=== PATIENT | female | born 1975 | race American Indian/Alaskan Native ===

== ENCOUNTER 2017-03-24 21:03 | Emergency (ER) | payer OTHER ==
[2017-03-25 01:40] LABS: Hemoglobin 10.2 gm/dl (10.1-14.3); Mean Corpuscular HGB Conc 32 % (30-34); Mean Corpuscular Volume 77 fl (79-97); Platelet Count 217 K/mm3 (140-440); Red Blood Count 4.17 M/mm3 (3.65-5.03)
[2017-03-25 01:45] LABS: Mean Corpuscular Hemoglobin 25 pg (28-32); Red Cell Distribution Width 20.3 % (13.2-15.2)
[2017-03-25 01:52] LABS: BUN/Creatinine Ratio 7; Blood Urea Nitrogen 5 mg/dL (7-17); Calcium 8.2 mg/dL (8.4-10.2); Hemolysis Index 3
[2017-03-25 02:29] LABS: Eosinophils % (Manual) 0 % (0.0-4.3); Total Cells Counted 100
[2017-03-25 02:30] LABS: Anisocytosis 1+; Hypochromasia 1+; Ovalocytes 1+
[2017-03-25 04:22] VITALS: BP 126/67
--- NOTE | 2017-03-25 05:24 | XRay Report ---
FINAL REPORT PROCEDURE: XR CHEST ROUTINE 2V TECHNIQUE: A portable AP chest radiograph was obtained at 03/25/2017 04:52 (EST) . CPT 23914 HISTORY: cough, fever COMPARISON: No prior studies are available for comparison. FINDINGS: Heart: Normal. Mediastinum/Vessels: Normal. Lungs/Pleural space: Lungs are clear and expanded. There are no infiltrates, effusions or pneumothoraces.. Bony thorax: No acute osseous abnormality. Life support devices: None. IMPRESSION: No acute cardiopulmonary abnormality.
[2017-03-25 05:50] LABS: Bacteria,Urine 1+ /HPF (Negative); Bilirubin,Urine NEG (Negative); Blood,Urine NEG (Negative); Color,Urine Yellow (Yellow); Nitrite,Urine NEG (Negative); Protein,Urine <15 mg/dL mg/dL (Negative); Urobilinogen,Urine < 2.0 mg/dL (<2.0)
[2017-03-25 05:51] LABS: HCG Qualitative,Urine Negative (Negative)
--- NOTE | 2017-03-25 07:02 | Emergency Department Report ---
- General Chief Complaint: Upper Respiratory Infection Stated Complaint: FLU LIKE SX Time Seen by Provider: 03/25/17 04:25 Source: patient Mode of arrival: Ambulatory Limitations: No Limitations - History of Present Illness Initial Comments: 41-year-old female past medical history anemia, chronic leukopenia presents with complaint of 1.5 weeks of persistent cough with some associated body aches and intermittent fevers. Patient is awake alert and oriented 3 fully lucid speaking in full sentences nontoxic appearing. No trismus no drooling, no dyspnea. Patient states she has had sick contacts with flulike symptoms this week. Patient denies chest pain or dyspnea at rest. States she occasionally smokes. States she has been having some body aches. Denies dysuria or increased urinary frequency. Primarily complaining of persistent nonproductive cough. MD Complaint: fever, cough, sore throat, rhinorrhea, nasal congestion Onset/Timin -: days(s), week(s) Severity: moderate Consistency: constant Improves With: OTC cold medicine Worsens With: nothing Context: sick contacts Associated Symptoms: fever, chills, myalgias, cough Treatments Prior to Arrival: "cold medicine" - Related Data Previous Rx's Medication Instructions Recorded Last Taken Type Albuterol Sulfate [Ventolin Hfa] 1 puff IH Q4H PRN #1 hfa.aer.ad 03/25/17 Unknown Rx Azithromycin [Zithromax Z-ALEJANDRO] 250 mg PO QDAY #1 pack 03/25/17 Unknown Rx Benzonatate [Tessalon Perles] 100 mg PO Q8HR PRN #30 capsule 03/25/17 Unknown Rx Ibuprofen [Motrin] 800 mg PO Q8HR PRN #30 tablet 03/25/17 Unknown Rx Phenylephrine/Dm/Acetaminop/GG 10 ml PO Q6H PRN #1 liquid 03/25/17 Unknown Rx [Mucinex Myox-Pdr-Nusouwnqyv Lq] Allergies Allergy/AdvReac Type Severity Reaction Status Date / Time cyclobenzaprine Allergy Hives Verified 03/25/17 01:07 [From Flexeril] ED Review of Systems ROS: Stated complaint: FLU LIKE SX Other details as noted in HPI Constitutional: fever, malaise. denies: chills Eyes: denies: eye pain, eye discharge, vision change ENT: denies: ear pain, throat pain Respiratory: cough. denies: shortness of breath, wheezing Cardiovascular: denies: chest pain, palpitations Endocrine: no symptoms reported Gastrointestinal: denies: abdominal pain, nausea, diarrhea Genitourinary: denies: urgency, dysuria, discharge Musculoskeletal: denies: back pain, joint swelling, arthralgia Skin: denies: rash, lesions Neurological: denies: headache, weakness, paresthesias Psychiatric: denies: anxiety, depression Hematological/Lymphatic: denies: easy bleeding, easy bruising ED Past Medical Hx - Past Medical History Previous Medical History?: Yes - Surgical History Additional Surgical History: , tubaligation 2001, anemia - Social History Smoking Status: Never Smoker - Medications Home Medications: Home Medications Medication Instructions Recorded Confirmed Last Taken Type Albuterol Sulfate [Ventolin Hfa] 1 puff IH Q4H PRN #1 hfa.aer.ad 03/25/17 Unknown Rx Azithromycin [Zithromax Z-ALEJANDRO] 250 mg PO QDAY #1 pack 03/25/17 Unknown Rx Benzonatate [Tessalon Perles] 100 mg PO Q8HR PRN #30 capsule 03/25/17 Unknown Rx Ibuprofen [Motrin] 800 mg PO Q8HR PRN #30 tablet 03/25/17 Unknown Rx Phenylephrine/Dm/Acetaminop/GG 10 ml PO Q6H PRN #1 liquid 03/25/17 Unknown Rx [Mucinex Lfnc-Ojq-Ejrrdpzbev Lq] ED Physical Exam - General Limitations: No Limitations General appearance: alert, in no apparent distress - Head Head exam: Present: atraumatic, normocephalic - Eye Eye exam: Present: normal appearance, PERRL, EOMI - ENT ENT exam: Present: mucous membranes moist - Neck Neck exam: Present: normal inspection - Respiratory Respiratory exam: Present: normal lung sounds bilaterally. Absent: respiratory distress - Cardiovascular Cardiovascular Exam: Present: regular rate, normal rhythm. Absent: systolic murmur, diastolic murmur, rubs, gallop - GI/Abdominal GI/Abdominal exam: Present: soft, normal bowel sounds - Extremities Exam Extremities exam: Present: normal inspection - Back Exam Back exam: Present: normal inspection - Neurological Exam Neurological exam: Present: alert, oriented X3 - Psychiatric Psychiatric exam: Present: normal affect, normal mood - Skin Skin exam: Present: warm, dry, intact, normal color. Absent: rash ED Course Vital Signs 03/25/17 03/25/17 00:55 04:11 Temperature 99.9 F H 99.3 F Pulse Rate 88 79 Respiratory 18 18 Rate Blood Pressure 126/67 Blood Pressure 119/77 [Left] O2 Sat by Pulse 98 95 Oximetry ED Medical Decision Making - Lab Data Result diagrams: 03/25/17 01:20 03/25/17 01:20 - Medical Decision Making A/P: Flulike illness, viral syndrome, chronic leukopenia 1-strep and flu swabs negative, urinalysis unremarkable. 2-chest x-ray is unremarkable, vital signs stable before discharge. Patient tolerating by mouth fluid and food without difficulty. 3-Motrin when necessary, Mucinex when necessary, Tessalon Perles when necessary , albuterol inhaler when necessary. Z-Alejandro as patient is occasional smoker and also in context of leukopenia. Patient is out of window for efficacy of Tamiflu 4- I advised patient to follow up with primary care or to return to the ED for any inability to tolerate by mouth fluid or food persistent nausea and vomiting severe fevers and chills or fevers persistently above 100.4F despite antipyretic use, severe lethargy. Patient stated he understood my instructions. I advised patient to remain well-hydrated. Critical care attestation.: If time is entered above; I have spent that time in minutes in the direct care of this critically ill patient, excluding procedure time. ED Disposition Clinical Impression: Chronic leukopenia, Viral syndrome, Flu-like symptoms Disposition: - TO HOME OR SELFCARE Is pt being admited?: No Does the pt Need Aspirin: No Condition: Stable Instructions: Viral Syndrome (ED), Influenza (ED), Cold Symptoms (ED) Prescriptions: Albuterol Sulfate [Ventolin Hfa] 1 puff IH Q4H PRN #1 hfa.aer.ad PRN Reason: Wheezing Azithromycin [Zithromax Z-ALEJANDRO] 250 mg PO QDAY #1 pack Benzonatate [Tessalon Perles] 100 mg PO Q8HR PRN #30 capsule PRN Reason: Cough Ibuprofen [Motrin] 800 mg PO Q8HR PRN #30 tablet PRN Reason: Fever Phenylephrine/Dm/Acetaminop/GG [Mucinex Sqyd-Bde-Bfqrxsvjdf Lq] 10 ml PO Q6H PRN #1 liquid PRN Reason: Cough Referrals: ZENA PLASCENCIA MD [Primary Care Provider] - 3-5 Days МАРИНА MARTINEZ MD [Staff Physician] - 3-5 Days CARLYLE DAMON MD [Staff Physician] - 3-5 Days [facility] [Outside] - 3-5 Days Forms: Accompanied Note, Work/School Release Form(ED) Time of Disposition: 07:04
== END 2017-03-25 07:29 | disposition home or self-care (01) ==
LOC: ED 21:03
DX: D72.819 Decreased white blood cell count, unspecified (principal); B34.9 Viral infection, unspecified; J11.1 Influenza due to unidentified influenza virus with other respiratory manifestations
CPT/HCPCS: 36415; 71046; 80048; 81001; 81025; 85007; 85025; 87116; 87400; 87430

== ENCOUNTER 2020-01-08 13:22 | Emergency (ER) | payer OTHER ==
[2020-01-08 14:04] VITALS: BP 119/77
--- NOTE | 2020-01-08 16:52 | XRay Report ---
CLINICAL DATA: fall TECHNICAL DATA: Two views were obtained, AP and lateral. FINDINGS: The soft tissues are normal. Bone mineralization is normal. There is no acute fracture or dislocation . Degenerative changes present first carpal metacarpal articulation. IMPRESSION: No acute radiographic abnormality. Signer Name: Meño Key MD Signed: 01/08/2020 4:47 PM Workstation Name: [id number]
--- NOTE | 2020-01-08 17:01 | Emergency Department Report ---
ED Fall HPI - General Chief Complaint: Fall Stated Complaint: RT FOOT/RT HIP INJURY Time Seen by Provider: 01/08/20 16:56 Source: patient Mode of arrival: Ambulatory - History of Present Illness Initial Comments: The patient was evaluated in the emergency department for symptoms described in the history of present illness. He/she was evaluated in the context of the global COVID-19 pandemic, which necessitated consideration that the patient might be at risk for infection with the virus that causes COVID-19. Institutional protocols and algorithms that pertain to the evaluation of patients at risk for COVID-19 are in a state of rapid change based on information released by regulatory bodies including the CDC and federal and state organizations. These policies and algorithms were followed during the patient's care in the emergency department. Please note that these policies, procedures and recommendations changed on a rapid basis. 44-year-old -[place] female presents to the emergency room complaining of pain in her right toe and right side of back status post fall at work yesterday. Patient reports that she did take a dose of naproxen last night but has not taken anything for her pain today. Patient denies any past medical history reports she is allergic to Flexeril. MD Complaint: fall -: Last night Place Fall Occurred: work Loss of Consciousness: none Prolonged Down Time?: no Symptoms Prior to Fall: none Location: back Location - Extremities: Right: Foot (First and second digit) Severity: severe Severity scale (0 -10): 8 Quality: burning, sharp, aching Context: tripped/slipped - Related Data Previous Rx's Medication Instructions Recorded Last Taken Type Albuterol Sulfate [Ventolin Hfa] 1 puff IH Q4H PRN #1 hfa.aer.ad 03/25/17 Unknown Rx Azithromycin [Zithromax Z-DANIEL] 250 mg PO QDAY #1 pack 03/25/17 Unknown Rx Benzonatate [Tessalon Perles] 100 mg PO Q8HR PRN #30 capsule 03/25/17 Unknown Rx Phenylephrine/Dm/Acetaminop/GG 10 ml PO Q6H PRN #1 liquid 03/25/17 Unknown Rx [Mucinex Cnbt-Cez-Uckznxjnde Lq] Ondansetron [Zofran Odt] 4 mg PO Q8HR PRN #14 tab.rapdis 05/06/18 Unknown Rx Prednisone [predniSONE 10 mg 10 mg PO .TAPER #1 tab.ds.pk 05/06/18 Unknown Rx (6-Day Pack, 21 Tabs)] traMADoL [Ultram 50 MG tab] 50 mg PO Q4HR PRN #14 tablet 05/06/18 Unknown Rx Sulfamethoxazole/Trimethoprim 1 each PO BID #14 tablet 05/02/19 Unknown Rx [Bactrim DS TAB] Diclofenac Sodium 50 mg PO Q8H #21 tablet. 01/08/20 Unknown Rx Allergies Allergy/AdvReac Type Severity Reaction Status Date / Time cyclobenzaprine Allergy Hives Verified 03/25/17 01:07 [From Flexeril] ED Review of Systems ROS: Stated complaint: RT FOOT/RT HIP INJURY Other details as noted in HPI Comment: All other systems reviewed and negative ED Past Medical Hx - Past Medical History Previous Medical History?: No - Surgical History Past Surgical History?: Yes Additional Surgical History: , tubaligation 2001, anemia - Social History Smoking Status: Never Smoker - Medications Home Medications: Home Medications Medication Instructions Recorded Confirmed Last Taken Type Albuterol Sulfate [Ventolin Hfa] 1 puff IH Q4H PRN #1 hfa.aer.ad 03/25/17 Unknown Rx Azithromycin [Zithromax Z-DANIEL] 250 mg PO QDAY #1 pack 03/25/17 Unknown Rx Benzonatate [Tessalon Perles] 100 mg PO Q8HR PRN #30 capsule 03/25/17 Unknown Rx Phenylephrine/Dm/Acetaminop/GG 10 ml PO Q6H PRN #1 liquid 03/25/17 Unknown Rx [Mucinex Emai-Vda-Pdocylkhna Lq] Ondansetron [Zofran Odt] 4 mg PO Q8HR PRN #14 tab.rapdis 05/06/18 Unknown Rx Prednisone [predniSONE 10 mg 10 mg PO .TAPER #1 tab.ds.pk 05/06/18 Unknown Rx (6-Day Pack, 21 Tabs)] traMADoL [Ultram 50 MG tab] 50 mg PO Q4HR PRN #14 tablet 05/06/18 Unknown Rx Sulfamethoxazole/Trimethoprim 1 each PO BID #14 tablet 05/02/19 Unknown Rx [Bactrim DS TAB] Diclofenac Sodium 50 mg PO Q8H #21 tablet. 01/08/20 Unknown Rx ED Physical Exam - General Limitations: No Limitations General appearance: alert, in no apparent distress - Head Head exam: Present: atraumatic, normocephalic - Eye Eye exam: Present: normal appearance - ENT ENT exam: Present: mucous membranes moist - Respiratory Respiratory exam: Absent: accessory muscle use - Extremities Exam Extremities exam: Present: normal inspection, full ROM - Back Exam Back exam: Present: muscle spasm, paraspinal tenderness - Neurological Exam Neurological exam: Present: alert, oriented X3 - Psychiatric Psychiatric exam: Present: normal affect, normal mood - Skin Skin exam: Present: warm, dry, intact, normal color. Absent: rash ED Course Vital Signs 01/08/20 13:57 Temperature 98.3 F Pulse Rate 82 Respiratory 19 Rate Blood Pressure 119/77 O2 Sat by Pulse 98 Oximetry ED Medical Decision Making - Radiology Data Radiology results: report reviewed [address] [address] XRay Report Signed Patient: DIEGO COLIN MR#: [id number] : 1975 Acct:[id number] Age/Sex: 44 / F ADM Date: 01/08/20 Loc: ED Attending Dr: Ordering Physician: ED MD DI Date of Service: 01/08/20 Procedure(s): XR foot 2V RT Accession Number(s): [id number] cc: ED DOCMD Fluoro Time In Minutes: CLINICAL DATA: fall TECHNICAL DATA: Two views were obtained, AP and lateral. FINDINGS: The soft tissues are normal. Bone mineralization is normal. There is no acute fracture or dislocation. Degenerative changes present first carpal metacarpal articulation. IMPRESSION: No acute radiographic abnormality. Signer Name: Meño Key MD Signed: 01/08/2020 4:47 PM Workstation Name: [id number] Transcribed By: WG Dictated By: Meño Key MD Electronically Authenticated By: Meño Key MD Signed Date/Time: 01/08/20 164 DD/ 1634 TD/TT: - Medical Decision Making 44-year-old -[place] female presents to the emergency room complaining of pain in her right toe and right side of back status post fall at work yesterday. Patient reports that she did take a dose of naproxen last night but has not taken anything for her pain today. Patient denies any past medical history reports she is allergic to Flexeril. Offered Toradol injection. X-ray of the foot is negative for any fractures or subluxations or dislocation. Patient be discharged home on diclofenac's. Critical care attestation.: If time is entered above; I have spent that time in minutes in the direct care of this critically ill patient, excluding procedure time. ED Disposition Clinical Impression: Pain of toe of right foot Fall Qualifiers: Encounter type: initial encounter Qualified Code(s): W19.XXXA - Unspecified fall, initial encounter Low back strain Qualifiers: Encounter type: initial encounter Qualified Code(s): S39.012A - Strain of muscle, fascia and tendon of lower back, initial encounter Disposition: TO HOME OR SELFCARE Is pt being admited?: No Does the pt Need Aspirin: No Condition: Stable Instructions: Muscle Strain, Xazr-te-Ybgd Additional Instructions: Please take pain medication as needed. Increase your water intake by 3 to 4 L daily. Rest. Prescriptions: Diclofenac Sodium 50 mg PO Q8H #21 tablet. Referrals: MELY HENAO MD [Primary Care Provider] - 3-5 Days Forms: Work/School Release Form(ED)
[2020-01-08] MEDS ORDERED: KETOROLAC 30 MG/1 ML INJ IM ONE (17:02)
== END 2020-01-08 17:15 | disposition home or self-care (01) ==
LOC: ED 13:22
DX: S39.012A Strain of muscle, fascia and tendon of lower back, initial encounter (principal); M79.674 Pain in right toe(s); W18.30XA Fall on same level, unspecified, initial encounter; Y93.89 Activity, other specified; Y92.89 Other specified places as the place of occurrence of the external cause; Y99.8 Other external cause status
CPT/HCPCS: 73620; 96372; 99283; J1885